=== PATIENT | female | born 1945 | race Caucasian/White ===

== ENCOUNTER 2016-11-23 12:56 | Emergency (ER) | payer MEDICARE, OTHER ==
[2016-11-23] MEDS ORDERED: Sodium Chloride 0.9% 1000 ML 1,000 ML IV SCH (14:00)
--- NOTE | 2016-11-23 14:04 | ERPHSYRPT ---
- History of Present Illness Time Seen by Provider: 11/23/16 13:51 Source: patient, family Exam Limitations: no limitations Patient Subjective Stated Complaint: pt here to be evaluated for dehydration, was sent by , pt not eating or drinking well, more weak than normal is taking chemo for breast ca, Triage Nursing Assessment: pt alert, resp easy, skin w/d, pt weak and needs assist of one to get form wc to bed Physician History: This is a 71-year-old white female with history of breast cancer who receives infusion therapy twice a week she is brought by her daughter with complaints that the patient has been weak she's been the having dry heaves she normally goes to the infusion center twice a week for IV fluids however today they noticed that she had decreased urination. She was apparently told to come to the emergency room for evaluation for dehydration. Patient denies any fevers she states she gets nauseous when she tries to eat. She has been able to take Compazine and Zofran for her nausea in the past. Symptoms apparently started at time of last chemotherapy She denies any pain she has no chest pain or shortness of breath. Past medical history includes breast cancer, on chemotherapy, cataracts, hypothyroidism, arthritis, Past surgical history includes tonsillectomy cholecystectomy and hemorrhoidectomy hysterectomy Timing/Duration: week(s) (symptoms for 2 weeks progressively worse) Severity: moderate Modifying Factors: Improves With: other (symptoms seem to be worse since patient received last chemotherapy 2 weeks ago) Associated Symptoms: nausea, vomiting (dry heaves), weakness, No abdominal pain , No shortness of breath, No heartburn, No diaphoresis, No cough, No chills, No chest pain, No fever, No headaches, No loss of appetite, No malaise, No rash, No syncope, No seizure Allergies/Adverse Reactions: No Known Drug Allergies Allergy (Verified 11/23/16 13:22) Home Medications: Aspirin [Aspir-Low] 81 mg PO DAILY 11/03/16 [History] Cholecalciferol (Vitamin D3) [Vitamin D3] 2,000 unit PO DAILY 11/03/16 [History] Dexamethasone 4 mg [Decadron 4 MG] 6 mg PO DAILY 11/03/16 [History] Dronabinol [Marinol] 2.5 mg PO BID 11/03/16 [History] Furosemide 40 mg [Lasix 40 MG] 40 mg PO DAILY 11/03/16 [History] Hydrocodone Bit/Acetaminophen [Kathleen 5/325Mg] 1 each PO Q6H PRN PRN 11/03/16 [ History] Ibuprofen 200 mg [Motrin 200 mg] 200 mg PO Q6H PRN PRN 11/03/16 [History] Insulin Glargine [Lantus Insulin] 10 unit SQ HS 11/03/16 [History] Levothyroxine Sodium 100 Mcg [Synthroid 100 Mcg] 100 mcg PO DAILY 11/03/16 [History] Lisinopril 20 mg [Zestril 20 MG] 40 mg PO DAILY 11/03/16 [History] Lorazepam 1 mg [Ativan 1 MG] 1 mg PO BID PRN 11/03/16 [History] Memantine HCl [Namenda] 10 mg PO BID 11/03/16 [History] Omeprazole 20 MG [Prilosec 20 mg] 20 mg PO DAILY 11/03/16 [History] Ondansetron HCl [Zofran] 8 mg Q8H PRN PRN 11/03/16 [History] Potassium Chloride 20 Meq [Klor-Con 20 MEQ] 20 meq PO DAILY PRN 11/03/16 [ History] Prochlorperazine Maleate 10 mg [Compazine 10 mg] 10 mg PO Q6HPRN PRN 11/03/16 [ History] Promethazine HCl 25 mg Supp [Phenergan 25 mg Supp] 25 mg RC Q6H PRN PRN [History] Promethazine HCl 25 mg [Phenergan 25 mg] 25 mg PO QID PRN 11/03/16 [ History] Ropinirole HCl [Requip] 1 mg PO HS 11/03/16 [History] Simvastatin [Zocor] 5 mg PO HS 11/03/16 [History] Venlafaxine HCl [Effexor] 75 mg PO BID 11/03/16 [History] Hx Influenza Vaccination/Date Given: No Hx Pneumococcal Vaccination/Date Given: No Immunizations Up to Date: Yes - Review of Systems Constitutional: Weakness, No Fever, No Chills Eyes: No Symptoms Ears, Nose, & Throat: No Symptoms Respiratory: No Cough, No Dyspnea Cardiac: No Chest Pain, No Edema, No Syncope Abdominal/Gastrointestinal: No Abdominal Pain, No Nausea, No Vomiting, No Diarrhea Genitourinary Symptoms: No Dysuria Musculoskeletal: No Back Pain, No Neck Pain Skin: No Rash Neurological: No Dizziness, No Focal Weakness, No Sensory Changes Psychological: No Symptoms Endocrine: No Symptoms All Other Systems: Reviewed and Negative - Past Medical History Neurological History: No Pertinent History ENT History: Cataracts Cardiac History: No Pertinent History Respiratory History: No Pertinent History Endocrine Medical History: Hypothyroidism Musculoskeletal History: Arthritis GI Medical History: No Pertinent History History: No Pertinent History Psycho-Social History: No Pertinent History Female Reproductive Disorders: Breast Cancer - Past Surgical History Past Surgical History: Yes Cardiac: No Pertinent History Respiratory: No Pertinent History Gastrointestinal: Cholecystectomy, Hemorrhoidectomy Genitourinary: No Pertinent History Musculoskeletal: No Pertinent History Female Surgical History: Hysterectomy, Mastectomy Other Surgical History: cvl port placed left chest.,skin cyst removed, goiter removed - Social History Smoking Status: Never smoker Exposure to second hand smoke: No Drug Use: none Patient Lives Alone: No - Female History Hx Last Menstrual Period: post - Nursing Vital Signs Nursing Vital Signs: Initial Vital Signs Temperature 98.4 F Temperature Source Oral Pulse Rate 69 Respiratory Rate 22 Blood Pressure [] 96/51 Pain Intensity 0 - Physical Exam General Appearance: no apparent distress Eye Exam: PERRL/EOMI, eyes nml inspection Ears, Nose, Throat Exam: normal ENT inspection, TMs normal, pharynx normal, moist mucous membranes Neck Exam: normal inspection, non-tender, supple, full range of motion Respiratory Exam: normal breath sounds (patient), lungs clear, No respiratory distress Cardiovascular Exam: regular rate/rhythm, normal heart sounds, normal peripheral pulses Gastrointestinal/Abdomen Exam: soft, normal bowel sounds, No tenderness, No mass Back Exam: normal inspection, normal range of motion, No CVA tenderness, No vertebral tenderness Extremity Exam: normal inspection, normal range of motion, pelvis stable Neurologic Exam: alert, oriented x 3, cooperative, normal mood/affect, nml cerebellar function, nml station & gait, sensation nml, No motor deficits Skin Exam: normal color, warm, dry, No rash Lymphatic Exam: No adenopathy SpO2 Interpretation: normal (95%) SpO2: 95 Oxygen Delivery: Room Air - Radiology Exams Chest X-ray Interpretation: Discussed w/ radiologist (non-acute chest) Ordered Tests: Active Orders 24 hr Category Date Time Status IV Insertion STAT Care 11/23/16 13:57 Active CHEST 1 VIEW (PORTABLE) Stat Exams 11/23/16 13:58 Completed AMYLASE Stat Lab 11/23/16 14:15 Completed BLOOD CULTURE Stat Lab 11/23/16 14:22 Received CBC W DIFF Stat Lab 11/23/16 14:15 Completed CMP Stat Lab 11/23/16 14:15 Completed CULTURE,URINE Stat Lab 11/23/16 14:47 Received LIPASE Stat Lab 11/23/16 14:15 Completed Manual Differential NC Stat Lab 11/23/16 14:15 Completed UA Stat Lab 11/23/16 14:47 Completed Medication Summary Generic Name Dose Route Start Last Admin Trade Name Freq PRN Reason Stop Dose Admin Sodium Chloride 1,000 mls @ 100 mls/hr 11/23/16 14:00 11/23/16 15:16 Sodium Chloride 0.9% 1000 Ml IV 12/23/16 13:59 100 mls/hr .Q10H BORA Administration Discontinued Medications Generic Name Dose Route Start Last Admin Trade Name Freq PRN Reason Stop Dose Admin Ondansetron HCl 4 mg 11/23/16 16:16 11/23/16 16:23 Zofran 4 Mg/2 Ml Vial IV 11/23/16 16:17 4 mg STAT ONE Administration Ondansetron HCl Confirm 11/23/16 16:20 Zofran 4 Mg/2 Ml Vial Administered 11/23/16 16:21 Dose 4 mg .ROUTE .STK-MED ONE Lab/Rad Data: Laboratory Result Diagrams 11/23/16 14:15 11/23/16 14:15 Laboratory Results 11/23/16 11/23/16 11/23/16 Range/Units 14:47 14:15 14:15 WBC 3.5 L (4.0-10.5) K/mm3 RBC 3.09 L (4.1-5.4) M/mm3 Hgb 10.5 L (12.0-16.0) gm/dl Hct 29.7 L (35-47) % MCV 96.1 (78-100) fl MCH 33.9 H (26-32) pg MCHC 35.4 (32-36) g/dl RDW 18.8 H (11.5-14.0) % Plt Count 154 (150-450) K/mm3 MPV 9.6 H (6-9.5) fl Segmented Neutrophils 48 (36.0-66.0) % Lymphocytes (Manual) 35 (24-44) % Monocytes (Manual) 10 (0.0-12.0) % Eosinophils (Manual) 6 H (0.00-3.0) % Basophils (Manual) 1 (0.0-1.0) % Differential Comment ABNORMAL Platelet Estimate NORMAL (NORMAL) Polychromasia RARE Anisocytosis 1+ Sodium 134 L (136-145) mEq/L Potassium 3.4 L (3.5-5.1) mEq/L Chloride 98 (98-107) mEq/L Carbon Dioxide 24.5 (21-32) mEq/L Anion Gap 14.5 (5-15) MEQ/L BUN 20 (9-20) mg/dL Creatinine 0.93 (0.55-1.30) mg/dl Estimated GFR > 60 ML/MIN Glucose 97 (70-110) MG/DL Calcium 9.2 (8.5-10.1) mg/dL Total Bilirubin 0.6 (0.2-1.0) mg/dL AST 24 (15-37) U/L ALT 40 (12-78) U/L Alkaline Phosphatase 63 (46-116) U/L Serum Total Protein 6.5 (6.4-8.2) gm/dL Albumin 3.4 (3.4-5.0) g/dL Amylase 42 (25-115) U/L Lipase 226 (73-393) U/L Ur Collection Type CATH Urine Color YELLOW (YELLOW) Urine Appearance CLEAR (CLEAR) Urine pH 6.5 (5-6) Ur Specific [place] 1.010 (1.005-1.025) Urine Protein NEGATIVE (Negative) Urine Glucose (UA) NEGATIVE (NEGATIVE) mg/dL Urine Ketones NEGATIVE (NEGATIVE) Urine Nitrite NEGATIVE (NEGATIVE) Urine Bilirubin NEGATIVE (NEGATIVE) Urine Urobilinogen 0.2 (0-1) mg/dL Urine WBC (Auto) NEGATIVE (NEGATIVE) Urine RBC (Auto) NEGATIVE (0-5) Jose/ul Specimen Received 11/23/16 1500 - Progress Progress: improved Progress Note: 11/23/16 16:28 This is a 71-year-old white female with history of breast cancer who is receiving chemotherapy from in [place]. She is brought in by her daughter who states the patient has been weak and not been eating for 2 weeks since taking her last chemotherapy. She would notice that the patient had decreased urine production today she contacted her doctor and it was suggested the patient be brought in to rule out dehydration. Patient arrives she is not in any acute distress she has no fever she is not vomiting at this time she did have some nausea earlier. Patient had a CBC which showed a white count of 3.5 hemoglobin 10.5 hematocrit of 29.7 she had a chemistry that shows sodium 134 potassium 3.4 chloride 98 bicarbonate 24.5 BUN and creatinine were 20 and 0.93 glucose was 97 urinalysis was specific gravity of 1.010 pH 6.5 chest x-ray no acute changes are noted. Patient really does not appear to be in any distress at this time I discussed the case with . And reviewed the patient's lab with him he did express concern that the patient had had perirectal abscesses in the past the patient and her daughter denies this. He recommended that we go ahead and give patient a full liter of normal saline I 've already give patient Alecia Will go ahead and discharge the patient and have her follow-up with . Family is to call him . The patient is scheduled for infusion on 4 days from now. - Departure Time of Disposition: 16:32 Departure Disposition: Home Clinical Impression: Anorexia, Nausea, history of breast cancer on chemotherapy Condition: Fair Critical Care Time: No Additional Instructions: Return home.. Plenty of fluids. Follow-up with your oncologist call tomorrow. Return for acute distress or for severe symptoms.
--- NOTE | 2016-11-23 14:24 | XRAY ---
Indication: Nausea and vomiting. Comparison: None Portable chest clear. Heart is not enlarged. Left-sided Port-A-Cath. Bony thorax intact with mild osteopenia, degenerative changes, and right axillary surgical clips. Impression: Nonacute chest.
[2016-11-23 14:32] LABS: Mean Cell Volume 96.1 fl (78-100); Mean Platelet Volume 9.6 fl (6-9.5); Platelet Count 154 K/mm3 (150-450); Red Blood Count 3.09 M/mm3 (4.1-5.4); Red Cell Distribution Width 18.8 % (11.5-14.0); White Blood Count 3.5 K/mm3 (4.0-10.5)
[2016-11-23 14:51] LABS: Mean Corpuscular Hemoglobin 33.9 pg (26-32)
[2016-11-23 15:02] LABS: ALBUMIN 3.4 g/dL (3.4-5.0); ALKALINE PHOSPHATASE 63 U/L (46-116); ANION GAP 14.5 MEQ/L (5-15); BILIRUBIN,TOTAL 0.6 mg/dL (0.2-1.0); BLOOD UREA NITROGEN 20 mg/dL (9-20); CHLORIDE 98 mEq/L (98-107); Carbon Dioxide 24.5 mEq/L (21-32); Glucose 97 MG/DL (70-110); LIPASE 226 U/L (73-393); Potassium 3.4 mEq/L (3.5-5.1); SGOT/AST 24 U/L (15-37); SGPT/ALT 40 U/L (12-78); SODIUM 134 mEq/L (136-145); Total Protein 6.5 gm/dL (6.4-8.2)
[2016-11-23 15:09] LABS: COMPLETE URINE MICROSCOPIC? NO; Collection Type CATH; Ph 6.5 (5-6)
[2016-11-23 15:18] VITALS: BP 96/51
[2016-11-23 15:34] LABS: ANISOCYTOSIS 1+; Basophil 1 % (0.0-1.0); Eosinophil 6 % (0.00-3.0); Total Cells Counted 100
[2016-11-23 15:36] LABS: Platelet Estimate NORMAL (NORMAL)
[2016-11-23 15:37] LABS: Polychromasia RARE
[2016-11-23 15:53] VITALS: PULSE 69
[2016-11-23 16:16] VITALS: O2SAT 95
[2016-11-23] MEDS ORDERED: Zofran 4 MG/2 ML VIAL IV ONE (16:16)
[2016-11-23] MEDS ORDERED: Zofran 4 MG/2 ML VIAL ONE (16:20)
== END 2016-11-23 16:56 | disposition home or self-care (01) ==
LOC: ED 12:56
DX: R63.0 Anorexia (principal); R11.0 Nausea; R11.2 Nausea with vomiting, unspecified; Z85.3 Personal history of malignant neoplasm of breast
CPT/HCPCS: 96374; 99284; 36000; 96360; 96361; 87040; 82150; 81002; 36415; 83690; 85025; 80053; 87086; 71010; P9612; 99283; J1642; J2405